=== PATIENT | female | born 1980 | race Caucasian/White ===

== ENCOUNTER 2022-02-20 08:15 | Emergency (ER) | payer BC ==
[2022-02-20] MEDS ORDERED: Lidocaine 2% Viscous Solution 15 ML UD PO ONE (08:48)
== END 2022-02-20 09:45 | disposition home or self-care (01) ==
LOC: LB.ED 08:15
DX: U07.1 COVID-19 (principal)
CPT/HCPCS: 87430; 87804; 87804-59; 99283; A9270-GY; U0002